=== PATIENT | male | born 1970 | race American Indian/Alaskan Native ===

== ENCOUNTER 2018-06-24 00:55 | Inpatient (IN) | payer SELFPAY ==
[2018-06-24] MEDS ORDERED: NACL 0.9% 1000 ML 1,000 ML IV ONE ×3 (01:36→08:11)
[2018-06-24] MEDS ORDERED: MORPHINE IV ONE (01:36)
[2018-06-24] MEDS ORDERED: VALIUM PO ONE (01:36)
[2018-06-24] MEDS ORDERED: ZOFRAN IV ONE (01:36)
[2018-06-24 02:10] LABS: Basophils # (Auto) 0.1 K/mm3 (0.0-0.1); Basophils % (Auto) 0.6 % (0.0-1.8); Eosinophils # (Auto) 0.1 K/mm3 (0.0-0.4); Eosinophils % (Auto) 0.4 % (0.0-4.3); Hematocrit 50.8 % (35.5-45.6); Lymphocytes # (Auto) 2.6 K/mm3 (1.2-5.4); Lymphocytes % (Auto) 20.6 % (13.4-35.0); Mean Corpuscular HGB Conc 34 % (32-34); Mean Corpuscular Hemoglobin 31 pg (28-32); Mean Corpuscular Volume 91 fl (84-94); Monocytes # (Auto) 1.6 K/mm3 (0.0-0.8); Platelet Count 212 K/mm3 (140-440); Red Blood Count 5.57 M/mm3 (3.65-5.03); Red Cell Distribution Width 13.4 % (13.2-15.2)
[2018-06-24 02:24] LABS: Albumin 3.9 g/dL (3.9-5); Calcium 9.4 mg/dL (8.4-10.2)
--- NOTE | 2018-06-24 06:14 | Emergency Department Report ---
ED General Adult HPI - General Chief complaint: Pain General Stated complaint: CRAMPS ALL OVER BODY Time Seen by Provider: 06/24/18 06:02 Source: patient Mode of arrival: Ambulatory Limitations: No Limitations - History of Present Illness Initial comments: Patient is a 48-year-old male presents emergency room with body cramps. Patient states these cramps started about 2 hours prior to arrival. Patient states that they're intermittent and have improved since being here. Patient denies pain at this time. Patient states that he started doing a colon cleansing to lose weight 3 days ago and has not been drinking enough water. Patient states that h is legs were the worst. Patient denies chest pain shortness of breath. Patient denies difficulties urinating. Patient denies abdominal pain. Patient denies recent trauma. Patient is not sure of the name of the colon cleanse or the ingredients. -: Sudden Radiation: non-radiation Severity scale (0 -10): 0 Consistency: now resolved Worsens with: none Associated Symptoms: denies: confusion, chest pain, cough, diaphoresis, fever/chills, headaches, loss of appetite, malaise, nausea/vomiting, rash, seizure, shortness of breath, syncope, weakness Treatments Prior to Arrival: none - Related Data Allergies Allergy/AdvReac Type Severity Reaction Status Date / Time No Known Allergies Allergy Verified 06/24/18 06:11 ED Review of Systems ROS: Stated complaint: CRAMPS ALL OVER BODY Other details as noted in HPI Constitutional: denies: chills, fever Eyes: denies: eye pain, eye discharge, vision change ENT: denies: ear pain, throat pain Respiratory: denies: cough, shortness of breath, wheezing Cardiovascular: denies: chest pain, palpitations Endocrine: no symptoms reported Gastrointestinal: denies: abdominal pain, nausea, diarrhea Genitourinary: denies: urgency, dysuria Musculoskeletal: denies: back pain, joint swelling, arthralgia Skin: denies: rash, lesions Neurological: denies: headache, weakness, paresthesias Psychiatric: denies: anxiety, depression Hematological/Lymphatic: denies: easy bleeding, easy bruising ED Past Medical Hx - Past Medical History Previous Medical History?: Yes Hx Hypertension: Yes - Surgical History Past Surgical History?: No - Family History Family history: no significant - Social History Smoking Status: Never Smoker Substance Use Type: None ED Physical Exam - General Limitations: No Limitations General appearance: alert, in no apparent distress - Head Head exam: Present: atraumatic, normocephalic - Eye Eye exam: Present: normal appearance, PERRL Pupils: Present: normal accommodation - ENT ENT exam: Present: mucous membranes moist - Neck Neck exam: Present: normal inspection - Respiratory Respiratory exam: Present: normal lung sounds bilaterally. Absent: respiratory distress - Cardiovascular Cardiovascular Exam: Present: regular rate, normal rhythm. Absent: systolic murmur, diastolic murmur, rubs, gallop - GI/Abdominal GI/Abdominal exam: Present: soft, normal bowel sounds - Rectal Rectal exam: Present: deferred - Extremities Exam Extremities exam: Present: normal inspection - Back Exam Back exam: Present: normal inspection - Neurological Exam Neurological exam: Present: alert, oriented X3 - Psychiatric Psychiatric exam: Present: normal affect, normal mood - Skin Skin exam: Present: warm, dry, intact, normal color. Absent: rash ED Course Vital Signs 06/24/18 06/24/18 06/24/18 02:14 02:22 04:27 Temperature 97.4 F L Pulse Rate 99 H Respiratory 20 18 19 Rate Blood Pressure 141/102 Blood Pressure [Left] O2 Sat by Pulse 100 98 Oximetry 06/24/18 06/24/18 05:27 08:52 Temperature Pulse Rate 97 H Respiratory 21 16 Rate Blood Pressure Blood Pressure 152/98 120/76 [Left] O2 Sat by Pulse 97 98 Oximetry - Reevaluation(s) Reevaluation #1: Discussed results with the patient. We'll recheck the patient's muscle enzyme. 06/24/18 06:55 Discussed all results with patient. Patient agrees with plan of care and admission. Patient will be admitted to the hospitalist service. 06/24/18 08:14 - Consultations Consultation #1: Hospitalist consulted for admission. Hospitalist to admit patient. Hospitalist to assume care patient. Bridge orders placed 06/24/18 08:13 ED Medical Decision Making - Lab Data Result diagrams: 06/24/18 01:48 06/24/18 01:48 - EKG Data -: EKG Interpreted by Ms EKG shows normal: sinus rhythm, axis, intervals, QRS complexes, ST-T waves Rate: tachycardia - Medical Decision Making Patient is a 48-year-old male that presents to emergency room with muscle cramps and muscle pains. Patient's muscle pains majority in the legs. Patient found to have an elevated CK and an a repeat CK shows further elevation even after 2 L of saline.. Patient diagnosed with rhabdomyolysis. Patient also has renal insufficiency. Patient denies having an abnormal chemistry or renal insufficiency. Patient's only past history hypertension. Patient will be admitted to the medical service for further evaluation treatment. Patient EKG negative. - Differential Diagnosis rhabdomyolysis. Dehydration. Renal insufficiency. Critical Care Time: Yes Critical care attestation.: If time is entered above; I have spent that time in minutes in the direct care of this critically ill patient, excluding procedure time. Critical Care Time: 35 minutes ED Disposition Clinical Impression: Dehydration, Muscle cramps, Abnormal blood chemistry, Elevated CK, Renal insufficiency Rhabdomyolysis Qualifiers: Rhabdomyolysis type: non-traumatic Qualified Code(s): M62.82 - Rhabdomyolysis Disposition: 09 OP ADMIT IP TO THIS HOSP Is pt being admited?: Yes Does the pt Need Aspirin: No Condition: Critical Time of Disposition: 08:11
[2018-06-24] MEDS ORDERED: NACL 0.9% 1000 ML 1,000 ML ONE (08:58)
[2018-06-24] MEDS ORDERED: SOLU-Medrol IV ONE (08:59)
[2018-06-24] MEDS ORDERED: DILAUDID IV ONE (08:59)
[2018-06-24] MEDS ORDERED: SOLU-Medrol ONE (09:03)
[2018-06-24] MEDS ORDERED: DILAUDID ONE (09:03)
[2018-06-24] MEDS ORDERED: PERCOCET 5/325 PO PRN (10:16)
[2018-06-24] MEDS ORDERED: FLEXERIL PO PRN (10:16)
--- NOTE | 2018-06-24 10:22 | History and Physical Report ---
History of Present Illness Date of examination: 06/24/18 Date of admission: 06/24/18 08:14 Chief complaint: Generalized body pains and muscle cramps History of present illness: Objective pleasant obese 48-year-old male patient with no significant past medical history presented to the emergency room with generalized body pains and cramping patient denies any trauma, or strenuous exercise, however reports that he is on some colon cleansing treatment for weight loss 3 days ago and had less oral fluids. Denies chest pain or shortness of breath, Denies nausea vomiting or abdominal pain Initial workup is consistent with rhabdomyolysis, And acute kidney injury second tyrell to [employer] Past History Past Medical History: hypertension Past Surgical History: No surgical history Social history: lives with family, full code. denies: smoking, alcohol abuse, prescription drug abuse Family history: hypertension Medications and Allergies Allergies Allergy/AdvReac Type Severity Reaction Status Date / Time No Known Allergies Allergy Verified 06/24/18 06:11 Home Medications Medication Instructions Recorded Confirmed Last Taken Type Amlodipine Besylate [Norvasc] 10 mg PO QDAY 06/24/18 06/24/18 06/23/18 10:00 History hydroCHLOROthiazide 25 mg PO QDAY 06/24/18 06/24/18 06/23/18 10:00 History [Hydrochlorothiazide] Active Meds: Active Medications Amlodipine Besylate (Norvasc) 10 mg PO QDAY [facility] Cyclobenzaprine HCl (Flexeril) 5 mg PO Q8H PRN PRN Reason: Muscle Spasm Sodium Chloride (Nacl 0.9% 1000 Ml) 1,000 mls @ 150 mls/hr IV DIRECT [facility] Miscellaneous Medication (Hydrochlorothiazide [Hydrochlorothiazide]) 25 mg PO QDAY [facility] Oxycodone/Acetaminophen (Percocet 5/325) 1 tab PO Q6H PRN PRN Reason: Pain, Moderate (4-6) Pantoprazole Sodium (Protonix) 40 mg PO QDAY [facility] Review of Systems Constitutional: fatigue, no weight loss, no weight gain Ears, nose, mouth and throat: no nasal congestion, no nasal discharge Cardiovascular: no chest pain, no orthopnea Respiratory: no cough, no hemoptysis Gastrointestinal: no abdominal pain, no nausea, no vomiting Genitourinary Male: no dysuria, no hematuria Musculoskeletal: muscle cramps, myalgias, arthritis Integumentary: no rash, no lesions Neurological: no head injury, no transient paralysis Psychiatric: no anxiety, no memory loss Endocrine: no cold intolerance, no heat intolerance Hematologic/Lymphatic: no easy bruising, no easy bleeding Allergic/Immunologic: no urticaria, no allergic rhinitis Exam - Constitutional Vitals: Temp Pulse Resp BP Pulse Ox 97.5 F L 76 22 119/91 99 06/24/18 09:30 06/24/18 09:30 06/24/18 09:30 06/24/18 09:30 06/24/18 09:30 General appearance: Present: no acute distress, well-nourished - EENT Eyes: Present: PERRL, EOM intact - Neck Neck: Present: supple, normal ROM - Respiratory Respiratory effort: normal Respiratory: bilateral: diminished, negative: rales, rhonchi, wheezing - Cardiovascular Rhythm: regular Heart Sounds: Present: S1 & S2 - Extremities Extremities: no ischemia, No edema - Abdominal General gastrointestinal: Present: soft, non-tender, non-distended, normal bowel sounds - Integumentary Integumentary: Present: clear, warm - Musculoskeletal Musculoskeletal: strength equal bilaterally, generalized weakness - Psychiatric Psychiatric: appropriate mood/affect, cooperative - Neurologic Neurologic: CNII-XII intact, moves all extremities Results - Labs CBC & Chem 7: 06/24/18 01:48 06/24/18 14:18 Labs: Abnormal lab results 06/24/18 06/24/18 06/24/18 Range/Units 01:48 01:48 06:59 WBC 12.4 H (4.5-11.0) K/mm3 RBC 5.57 H (3.65-5.03) M/mm3 Hgb 17.0 H (11.8-15.2) gm/dl Hct 50.8 H (35.5-45.6) % Catron % (Auto) 13.0 H (0.0-7.3) % [place] # 1.6 H (0.0-0.8) K/mm3 Seg Neutrophils # 8.1 H (1.8-7.7) K/mm3 Sodium 134 L (137-145) mmol/L Carbon Dioxide 16 L (22-30) mmol/L BUN 28 H (9-20) mg/dL Glucose 202 H (75-100) mg/dL Total Creatine Kinase 591 H 1668 H (55-170) units/L Assessment and Plan --Rhabdomyolysis; Aggressive IV hydration, input output monitoring Preserve renal function, encouraged plenty of oral fluids Check urine drug screen --Myalgia and muscle cramps; Supportive care with pain medications and muscle relaxers --Mild hyponatremia; continue IV normal saline Closely monitor electrolytes --Metabolic acidosis; Aggressive IV hydration, replacement therapy with sodium bicarbonate if needed --History of hypertension; resume home antihypertensive When necessary medications --Hyperglycemia; Check sliding scale coverage Check hemoglobin A1c --Obesity; BMI 37.3 Advised weight reduction when medically stable --DVT prophylaxis; Lovenox Plan monitor patient closely and adjust the management as needed 55 minutes spent coordinating this admission Possible discharge in 1-2 days if stable
[2018-06-24] MEDS: NACL 0.9% 1000 ML 1,000 ML IV SCH ×2 (12:15→17:39)
[2018-06-24] MEDS: HCTZ PO SCH (15:10)
[2018-06-24] MEDS: NORVASC PO SCH (15:10)
[2018-06-24 15:11] LABS: BUN/Creatinine Ratio 16; Blood Urea Nitrogen 18 mg/dL (9-20); Calcium 8.4 mg/dL (8.4-10.2); Hemolysis Index 4
[2018-06-24 18:25] LABS: Amphetamine Screen,Urine PRESUMPTIVE NEGATIVE; Benzodiazepines Screen,Urine PRESUMPTIVE NEGATIVE; Cocaine Screen,Urine PRESUMPTIVE NEGATIVE; Methadone Screen,Urine PRESUMPTIVE NEGATIVE; Opiate Screen,Urine PRESUMPTIVE NEGATIVE
[2018-06-24 18:52] LABS: Cannabinoid Screen,Urine PRESUMPTIVE POSITIVE
[2018-06-25] MEDS: NACL 0.9% 1000 ML 1,000 ML IV SCH (06:26)
[2018-06-25 08:17] LABS: Alanine Aminotransferase 26 units/L (7-56); Albumin 3.2 g/dL (3.9-5); BUN/Creatinine Ratio 14; Blood Urea Nitrogen 14 mg/dL (9-20); Calcium 8.6 mg/dL (8.4-10.2); Hemolysis Index 9
[2018-06-25] MEDS ORDERED: PROTONIX PO SCH (10:00)
[2018-06-25] MEDS ORDERED: HYDROCHLOROTHIAZIDE 25 MG PO SCH (10:00)
[2018-06-25] MEDS: NORVASC PO SCH (10:06)
[2018-06-25] MEDS: HCTZ PO SCH (10:06)
--- NOTE | 2018-06-25 10:30 | Discharge Summary ---
Providers - Providers Date of Admission: 06/24/18 08:14 Date of discharge: 06/25/18 Attending physician: SHEBA SWAIN [facility] Reason for admission: generalized body pains and muscle cramps/rhabdomyolysis Condition: Stable Hospital course: Very pleasant 48-year-old male patient with significant past medical history of hypertension Is admitted through emergency room with generalized body pains and muscle cramps Initial workup was consistent with acute rhabdomyolysis with mild acute kidney injury Admitted to the hospital symptomatically managed, Managed with aggressive IV hydration sodium bicarbonate Patient's symptoms gradually but significantly improved, Today he is comfortable with no new complaints of muscle pains or spasms, CK level significantly improved, Today, alert oriented 3 ambulatory tolerating oral nutrition Stable for discharge and advised to drink plenty fluids check CK levels in 2 days at [facility] office patient is hemodynamically and clinically stable at discharge Patient advised weight reduction and quit recreational drug use Discharge diagnosis: --Rhabdomyolysis; Aggressive IV hydration, input output monitoring Preserve renal function, encouraged plenty of oral fluids Check urine drug screen --Myalgia and muscle cramps; Supportive care with pain medications and muscle relaxers --Mild hyponatremia; continue IV normal saline Closely monitor electrolytes --Metabolic acidosis; Aggressive IV hydration, replacement therapy with sodium bicarbonate if needed --History of hypertension; resume home antihypertensive When necessary medications --Hyperglycemia; Check sliding scale coverage Check hemoglobin A1c -- marijuana use --Obesity; BMI 37.3 Advised weight reduction when medically stable --DVT prophylaxis; Lovenox Disposition: DC-01 TO HOME OR SELFCARE Time spent for discharge: 32 min Core Measure Documentation - Palliative Care Palliative Care/ Comfort Measures: Not Applicable - Core Measures Any of the following diagnoses?: none Exam - Constitutional Vitals: Temp Pulse Resp BP Pulse Ox 98.1 F 83 16 114/75 98 06/25/18 05:36 06/25/18 05:36 06/25/18 05:36 06/25/18 05:36 06/25/18 05:36 General appearance: Present: no acute distress, well-nourished - EENT Eyes: Present: PERRL, EOM intact - Neck Neck: Present: supple, normal ROM - Respiratory Respiratory effort: normal Respiratory: negative: rales, rhonchi, wheezing - Cardiovascular Rhythm: regular Heart Sounds: Present: S1 & S2 - Extremities Extremities: no ischemia, No edema - Abdominal General gastrointestinal: Present: soft, non-tender, non-distended, normal bowel sounds - Integumentary Integumentary: Present: clear, warm - Musculoskeletal Musculoskeletal: strength equal bilaterally - Psychiatric Psychiatric: appropriate mood/affect, cooperative - Neurologic Neurologic: CNII-XII intact, moves all extremities Plan Activity: no restrictions Diet: low salt Additional Instructions: advised plenty of oral fluids. Check CK levels at [facility] office in 2 days Follow up with: PRIMARY CARE, [Referring] - 3-5 Days Prescriptions: hydroCHLOROthiazide [HCTZ] 25 mg PO QDAY #30 tablet Amlodipine Besylate [Norvasc] 10 mg PO QDAY #30 tablet
[2018-06-25 11:55] VITALS: BP 136/99
== END 2018-06-25 13:19 | disposition home or self-care (01) | DRG 683 ==
LOC: ED 00:55 → 3A 08:14
PROVIDERS: ADMIT Internal Medicine; ATTEND Internal Medicine
DX: N17.9 Acute kidney failure, unspecified (principal); M62.82 Rhabdomyolysis; E87.1 Hypo-osmolality and hyponatremia; E87.2 Acidosis; E86.0 Dehydration; E66.9 Obesity, unspecified; Z68.37 Body mass index [BMI] 37.0-37.9, adult; Z71.3 Dietary counseling and surveillance; R73.9 Hyperglycemia, unspecified; F12.90 Cannabis use, unspecified, uncomplicated
CPT/HCPCS: 36415; 80048; 80053; 80307; 82550; 83735; 84100; 85025; 93005; 93010; 96374; 96375; G0378; J1170; J2270; J2405; J2930; J7030

== ENCOUNTER 2021-11-12 05:28 | Emergency (ER) | payer SELFPAY ==
--- NOTE | 2021-11-12 08:01 | Emergency Department Report ---
ED Recheck HPI - General Chief Complaint: High BP Stated Complaint: DEHYDRATION Time Seen by Provider: 11/12/21 07:38 Source: patient Mode of arrival: Ambulatory Limitations: No Limitations - History of Present Illness Initial Comments: 51 YO COMES TO ER WITH INTERMITTENT CP AND INC BP. HE IS OFF HIS BP MEDS AND REQUESTING REFILL. ON EXAM NO CP. NO SOB MD Complaint: medication refill request Returns Today for: other Symptoms Since Prior Visit: no new symptoms Associated Symptoms: none - Related Data Previous Rx's Medication Instructions Recorded Last Taken Type Amlodipine Besylate [Norvasc] 10 mg PO QDAY #30 tablet 06/25/18 Unknown Rx amLODIPine 10 mg PO DAILY #30 tab 11/12/21 Unknown Rx hydroCHLOROthiazide [HCTZ] 25 mg PO QDAY #30 tablet 11/12/21 Unknown Rx Allergies Allergy/AdvReac Type Severity Reaction Status Date / Time lisinopril AdvReac Severe Angioedema Verified 11/12/21 06:48 ED Review of Systems ROS: Stated complaint: DEHYDRATION Other details as noted in HPI Comment: All other systems reviewed and negative ED Past Medical Hx - Past Medical History Previous Medical History?: Yes Hx Hypertension: Yes Additional medical history: GOUT - Surgical History Past Surgical History?: No - Family History Family history: no significant - Social History Smoking Status: Former Smoker Substance Use Type: None - Medications Home Medications: Home Medications Medication Instructions Recorded Confirmed Last Taken Type Amlodipine Besylate [Norvasc] 10 mg PO QDAY #30 tablet 06/25/18 Unknown Rx amLODIPine 10 mg PO DAILY #30 tab 11/12/21 Unknown Rx hydroCHLOROthiazide [HCTZ] 25 mg PO QDAY #30 tablet 11/12/21 Unknown Rx ED Physical Exam - General Limitations: No Limitations General appearance: alert, in no apparent distress - Head Head exam: Present: atraumatic, normocephalic - Eye Eye exam: Present: normal appearance - ENT ENT exam: Present: mucous membranes moist - Neck Neck exam: Present: normal inspection - Respiratory Respiratory exam: Present: normal lung sounds bilaterally. Absent: respiratory distress - Cardiovascular Cardiovascular Exam: Present: regular rate, normal rhythm. Absent: systolic murmur, diastolic murmur, rubs, gallop - GI/Abdominal GI/Abdominal exam: Present: soft, normal bowel sounds - Rectal Rectal exam: Present: deferred - Extremities Exam Extremities exam: Present: normal inspection - Back Exam Back exam: Present: normal inspection - Neurological Exam Neurological exam: Present: alert, oriented X3 - Psychiatric Psychiatric exam: Present: normal affect, normal mood - Skin Skin exam: Present: warm, dry, intact, normal color. Absent: rash ED Course Vital Signs 11/12/21 11/12/21 06:44 08:20 Temperature 98.2 F 98.6 F Pulse Rate 62 88 Respiratory 18 18 Rate Blood Pressure 113/79 112/78 [Right] O2 Sat by Pulse 100 99 Oximetry ED Recheck MDM - Core Measures Measure Exclusions: not indicated - Medical Decision Making Vital Signs 11/12/21 11/12/21 06:44 08:20 Temperature 98.2 F 98.6 F Pulse Rate 62 88 Respiratory 18 18 Rate Blood Pressure 113/79 112/78 [Right] O2 Sat by Pulse 100 99 Oximetry PT EDUCATED ON IMPORTANCE OF HAVING PCP GIVEN RX FOR BP MEDS DC HOME WITH DC PLAN OF CARE INCLUDING DIET, MEDS, ACTIVITY AND FOLLOW UP. HE VERBALIZES UNDERSTANDING OF PLAN OF CARE. Critical care attestation.: If time is entered above; I have spent that time in minutes in the direct care of this critically ill patient, excluding procedure time. ED Disposition Clinical Impression: Medication refill, Hx of primary hypertension, Nonadherence to medication Disposition: 01 HOME / SELF CARE / HOMELESS Is pt being admited?: No Does the pt Need Aspirin: No Condition: Stable Instructions: Hypertension, Adult Additional Instructions: FOLLOW UP WITH PCP REFERRAL BELOW TAKE MEDS DAILY INSTRUCTED Prescriptions: amLODIPine 10 mg PO DAILY #30 tab hydroCHLOROthiazide [HCTZ] 25 mg PO QDAY #30 tablet Referrals: LISA RAINEY MD [Primary Care Provider] - 3-5 Days Forms: Work/School Release Form(ED) Time of Disposition: 07:59
[2021-11-12 08:23] VITALS: BP 112/78
== END 2021-11-12 08:22 | disposition home or self-care (01) ==
LOC: ED 05:28
DX: I10 Essential (primary) hypertension (principal); Z76.0 Encounter for issue of repeat prescription; Z87.891 Personal history of nicotine dependence; Z88.8 Allergy status to other drugs, medicaments and biological substances; Z79.899 Other long term (current) drug therapy
CPT/HCPCS: 99282